=== PATIENT | female | born 1940 | race African-American/Black ===

== ENCOUNTER 2022-07-06 04:26 | Day surgery (SDC) | payer OTHER, BC ==
[2022-07-05 12:00] VITALS: BMI 23.3
[2022-07-06 11:59] VITALS: TEMP 97.1
[2022-07-06 12:04] VITALS: PULSE 54
[2022-07-06 12:57] VITALS: BP 120/63; RESP 17
[2022-07-06] MEDS ORDERED: EPINEPHrine 1:10,000 (P-F SYR) 1 MG/10 ML DISP.SYRIN ONE (13:55)
== END 2022-07-06 12:56 | disposition home or self-care (01) ==
LOC: JASU-ENDO 04:26
PROVIDERS: ATTEND Internal Medicine Gastroenterology
PROC: 0DB78ZX Excision of Stomach, Pylorus, Via Natural or Artificial Opening Endoscopic, Diagnostic (ICD-10-PCS; 2022-07-06)
PROC: 0DBL8ZX Excision of Transverse Colon, Via Natural or Artificial Opening Endoscopic, Diagnostic (ICD-10-PCS; principal; 2022-07-06 11:00)
DX: Z12.11 Encounter for screening for malignant neoplasm of colon (principal); K63.5 Polyp of colon; K57.30 Diverticulosis of large intestine without perforation or abscess without bleeding; K29.50 Unspecified chronic gastritis without bleeding; K21.9 Gastro-esophageal reflux disease without esophagitis; Z86.010 Personal history of colon polyps
CPT/HCPCS: 88305-TC; 88342-TC